=== PATIENT | male | born 1960 | race Caucasian/White ===

== ENCOUNTER → 2017-03-01 | Outpatient (CLI) | payer OTHER ==
[2017-03-01 09:06] LABS: BLOOD UREA NITROGEN 21 mg/dL (7-18)
== END | disposition home or self-care (01) ==
LOC: STAR 07:44
PROVIDERS: ATTEND Neurological Surgery
DX: Z01.818 Encounter for other preprocedural examination (principal); M51.36 Other intervertebral disc degeneration, lumbar region
CPT/HCPCS: 36415; 71020; 80048; 81003; 85025; 85610; 85730; 93005

== ENCOUNTER 2017-03-08 05:29 | Observation (INO) | payer OTHER ==
[~2017-03-08] VITALS: Ht 175.3 cm; Wt 106.0 kg
[~2017-03-08 05:29] MED LIST: SIMV40TA3 PO
[2017-03-08] MEDS ORDERED: LACTATED RINGERS 1,000 ML IV SCH (06:08)
[2017-03-08 06:10] VITALS: BP 135/83
[2017-03-08] MEDS ORDERED: THROMBIN 5,000 UNIT VIAL TP ONE (06:12)
[2017-03-08] MEDS ORDERED: BACITRACIN 50,000 UNIT ONE (06:12)
[2017-03-08] MEDS ORDERED: BUPIVACAINE/PF-EPI 0.5% 1:200K ONE (06:12)
[2017-03-08] MEDS ORDERED: FENTANYL PF 250 MCG/5ML ONE (06:39)
[2017-03-08] MEDS ORDERED: MIDAZOLAM 1 MG/ML, 2ML ONE (06:40)
[2017-03-08] MEDS ORDERED: DEXAMETHASONE 4 MG/ML, 1ML ONE (07:07)
[2017-03-08] MEDS ORDERED: ONDANSETRON 2MG/ML, 2ML ONE (07:07)
[2017-03-08] MEDS ORDERED: CEFAZOLIN 1,000 MG ONE (07:07)
[2017-03-08] MEDS ORDERED: ROCURONIUM 10 MG/ML ONE (07:07)
[2017-03-08] MEDS ORDERED: SUCCINYLCHOLINE 20 MG/ML, 10ML ONE (07:07)
[2017-03-08] MEDS ORDERED: PROPOFOL 10 MG/ML, 20ML ONE (07:07)
[2017-03-08] MEDS ORDERED: ONDANSETRON 2MG/ML, 2ML IVPush PRN ×2 (08:00→09:30)
[2017-03-08] MEDS ORDERED: OXYcodone 5 MG/5 ML ORAL.SOL UDC PO PRN (08:00)
[2017-03-08] MEDS ORDERED: hydrALAzine 20 MG/ML, 1ML IV PRN (08:00)
[2017-03-08] MEDS ORDERED: PROMETHAZINE 25 MG/ML, 1ML IV PRN (08:00)
[2017-03-08] MEDS ORDERED: LABETALOL 5MG/ML, 20ML IV PRN (08:00)
[2017-03-08] MEDS ORDERED: MEPERIDINE/PF 25MG/0.5ML IVPush PRN (08:00)
[2017-03-08] MEDS ORDERED: HYDROmorphone 1 MG/ML, 1ML IV PRN (08:00)
[2017-03-08] MEDS ORDERED: ACETAMINOPHEN 325 MG TABLET PO PRN (08:00)
[2017-03-08] MEDS ORDERED: FENTANYL PF 100 MCG/2ML IV PRN (08:00)
[2017-03-08] MEDS ORDERED: FENTANYL PF 100 MCG/2ML ONE (08:14)
[2017-03-08] MEDS ORDERED: BUPIVACAINE 0.25% ONE (08:14)
[2017-03-08] MEDS ORDERED: ACETAMINOPHEN 325 MG TABLET ONE (09:26)
[2017-03-08] MEDS ORDERED: ACETAMINOPHEN 650 MG/20.3 ML UDC ONE (09:26)
[2017-03-08] MEDS ORDERED: OXYcodone 5 MG/5 ML ORAL.SOL UDC ONE (09:26)
[2017-03-08] MEDS ORDERED: CEFAZOLIN PMX 1GM/50ML 50 ML IVPB SCH (09:30)
[2017-03-08] MEDS ORDERED: NS + 20MEQ KCL 1,000 ML IV SCH (09:30)
[2017-03-08] MEDS ORDERED: HYDROcodone/APAP 10/325 MG TABLET PO PRN (09:30)
[2017-03-08] MEDS ORDERED: OXYcodone/APAP 5/325MG TABLET PO PRN (09:30)
[2017-03-08] MEDS ORDERED: DIPHENHYDRAMINE 50 MG/ML, 1ML IVPush PRN (09:30)
[2017-03-08] MEDS ORDERED: HYDROcodone/APAP 5/325 TABLET PO PRN (09:30)
[2017-03-08] MEDS ORDERED: PROMETHAZINE 25 MG/ML, 1ML IM PRN (09:30)
[2017-03-08] MEDS ORDERED: morphine SULFATE 10 MG/ML, 1ML IVPush PRN (09:30)
[2017-03-08] MEDS ORDERED: CYCLOBENZAPRINE 10 MG TABLET PO PRN (09:30)
[2017-03-08] MEDS ORDERED: PHARMACY MAY ADJ FOR RENAL FX MC PRN (09:30)
[2017-03-08] MEDS ORDERED: SIMVASTATIN 40 MG TABLET PO SCH (21:00)
[2017-03-08] MEDS ORDERED: SODIUM CHLORIDE FLUSH 10ML SYR IVF SCH (21:00)
[2017-03-10] MEDS ORDERED: NORCO (06:51)
[2017-03-10] MEDS ORDERED: KEFLEX (06:51)
[2017-03-10] MEDS ORDERED: TAMS-11 PO (07:09)
[2017-03-10] MEDS ORDERED: CYCL-259 PO (13:26)
[2017-03-10] MEDS ORDERED: HYDR-3144 PO (13:26)
[2017-03-10] MEDS ORDERED: CEPH-376 PO (13:26)
[2017-03-10] MEDS ORDERED: DOCU100C8 PO (13:27)
[2017-03-11] MEDS ORDERED: HYDROcodone/APAP 5/325 TABLET PO PRN (16:00)
[2017-03-11] MEDS ORDERED: HYDROcodone/APAP 10/325 MG TABLET PO PRN ×2 (16:00)
[2017-03-11] MEDS ORDERED: POLYETHYLENE GLYCOL 17 GM PACKET PO PRN (16:00)
[2017-03-11] MEDS ORDERED: SIMV40TA3 PO (18:36)
[2017-03-11] MEDS ORDERED: SODIUM CHLORIDE FLUSH 10ML SYR IVF SCH (21:00)
== END 2017-03-08 17:00 | disposition home or self-care (01) ==
LOC: OUT 05:29 → ORIP 09:33
PROVIDERS: ADMIT Neurological Surgery; ATTEND Neurological Surgery
DX: M51.16 Intervertebral disc disorders with radiculopathy, lumbar region (principal); M48.07 Spinal stenosis, lumbosacral region; M48.06 Spinal stenosis, lumbar region; G47.30 Sleep apnea, unspecified; E66.01 Morbid (severe) obesity due to excess calories; Z68.35 Body mass index [BMI] 35.0-35.9, adult
CPT/HCPCS: 63030; 63056; 63057; 72100; C1751; G0378; J0330; J0690; J1100; J2250; J2405; J2704; J3010; J3490; J7120